=== PATIENT | male | born 1975 | race Caucasian/White ===

== ENCOUNTER 2018-12-26 06:32 | Inpatient (IN) | payer MEDICARE ==
[2018-12-26] MEDS ORDERED: BUPIV. HCL 0.25% (2.5MG/ML)/EPI. (1:200,000) PF 30 ML VIAL IJ ONE (08:48)
[2018-12-26] MEDS ORDERED: AMPICILLIN SODIUM 1 GM VIAL ONE (08:48)
[2018-12-26] MEDS ORDERED: MIDAZOLAM HCL 2 MG/2 ML VIAL ONE (08:48)
[2018-12-26] MEDS ORDERED: SCOPOLAMINE HYDROBROMIDE 1.5MG/72HR PATCH TD ONE (08:48)
[2018-12-26] MEDS ORDERED: FAMOTIDINE 20 MG/2 ML VIAL IV ONE (08:48)
[2018-12-26] MEDS ORDERED: PROPOFOL 200 MG/20 ML VIAL IV ONE (08:48)
[2018-12-26] MEDS ORDERED: ePHEDrine SULFATE 50 MG/1 ML IVP ONE (08:48)
[2018-12-26] MEDS ORDERED: LACTATED RINGERS 1,000 ML IV.SOLN IV ONE ×2 (08:48)
[2018-12-26] MEDS ORDERED: ROCURONIUM BROMIDE 10 MG/ML 5ML VIAL ONE (08:48)
[2018-12-26] MEDS ORDERED: PHENYLEPHRINE HCL 10 MG/1 ML ONE (08:48)
[2018-12-26] MEDS ORDERED: ONDANSETRON HCL/PF 4 MG/ 2ML VIAL ONE (08:48)
[2018-12-26] MEDS ORDERED: LIDOCAINE HCL 2% PF 100MG/5ML VIAL IJ ONE (08:48)
[2018-12-26] MEDS ORDERED: DEXAMETHASONE SODIUM PHOSPHATE 10 MG/ML VIAL ONE (08:48)
[2018-12-26] MEDS ORDERED: SUGAMMADEX SODIUM 500 MG/5 ML VIAL IV ONE (08:48)
[2018-12-26] MEDS ORDERED: SEVOFLURANE 250 ML LIQUID IH ONE (08:48)
[2018-12-26] MEDS ORDERED: LIDOCAINE HCL 1% PF 300MG/30ML VIAL ONE (08:48)
[2018-12-26] MEDS ORDERED: CLINDAMYCIN PHOSPHATE 900 MG/6 ML VIAL ONE (08:48)
[2018-12-26] MEDS ORDERED: ENOXAPARIN SODIUM 40 MG/0.4 ML DISP.SYRIN SQ ONE (08:48)
[2018-12-26] MEDS ORDERED: SODIUM CHLORIDE IRRIG SOLUTION 3,000 ML IRRIG.SOLN IR ONE (08:48)
[2018-12-26] MEDS ORDERED: fentaNYL CITRATE/PF 100 MCG/2 ML INJ. ONE (10:15)
[2018-12-26] MEDS ORDERED: 0.9 % SODIUM CHLORIDE 1,000 ML IV ONE (10:43)
[2018-12-26] MEDS ORDERED: HYDROcodone-ACETAMIN 7.5-325/15ML SOLN UD CUP PO PRN (10:51)
[2018-12-26] MEDS ORDERED: CYCLOBENZAPRINE HCL 10 MG TABLET PO PRN (10:55)
[2018-12-26 11:08] VITALS: BMI 64.1
--- NOTE | 2018-12-26 11:18 | History and Physical Report ---
History of Present Illnes - History of Present Illness Reason for Visit: S/P LSG History of Present Illness: Patient is a 43-year-old morbidly obese male with a BMI > 64 who has tried multiple diets and exercise programs with no success. He has always struggled with his weight. He states that his parents were overweight. He has tried many diet plans, diet pills, and walking and has not been able to keep it off. Patient and surgeon decided to proceed with gastric sleeve procedure. Procedure went well- patient will be admitted and monitored s/p surgical intervention. Patient has been on a liquid diet prior to surgery so he is a risk of dehydration s/p surgery. He will be admitted for IV hydration to help hydrate patient until he is able to tolerate a sufficient oral intake, will treat pain with IV medication until patient is able to tolerate oral meds, IV antiemetics to help reduce episodes of nausea and/or vomiting. Patient will be monitored closely using telemetry due to Sleep Apnea (will monitor closely- does not use CPAP), shortness of breath with exertion and severe obesity. Will monitor respiratory status due to respiratory risk. - Past Medical History Pulmonary: Pulmonary embolus (Hx of PE in 2002), Sleep Apnea (No CPAP) Gastrointestinal: GERD Psych: Depression Musculoskeletal: Chronic low back pain Endocrine: obesity (Morbid) - Past Surgical History Past Surgical History: Cholecystectomy, Other (Left ankle/Right knee/ CTR bilateral/Nasal septum repair/Femur with donald) - Past Family History Mother Family History: DM, Hyperlipidemia, Hypertension Father Family History: CAD, DM, Hyperlipidemia - Past Social History Smoke: No (uses chewing tobacco) Occupation: Disabled Alcohol: None Drugs: None Lives: With Family Domestic Violence: Negative - Health Maintenance Health Maintenance: Cholesterol Influenza Vaccine: No Pneumonia Vaccine: No Resuscitation Status: Resusciation Status Resuscitation Status Full Code Review of Systems - Review of Systems Constitutional: negative: Fever, Chills Eyes: negative: conjunctivae inflammation, eyelid inflammation ENT: negative: Throat Pain Respiratory: SOB with Excertion Cardiovascular: negative: Chest Pain, Light Headedness Gastrointestinal: Nausea, Vomiting (dry heaves), Abdominal Pain ("pt states he is very uncomfortable") Genitourinary: negative: Dysuria Musculoskeletal: Back Pain (chronic) Skin: Other (incision site x 5) Neurological: negative: Weakness, Confusion - Medications/Allergies Allergies/Adverse Reactions: Allergies Allergy/AdvReac Type Severity Reaction Status Date / Time Penicillins Allergy Verified 12/26/18 10:38 Sulfa (Sulfonamide Allergy Verified 12/26/18 10:38 Antibiotics) Home Medications: Home Medications Cyclobenzaprine HCl 10 mg PO TID PRN 12/26/18 Morphine Sulfate [Morphine Sulfate ER] 30 mg PO TID 12/26/18 Omeprazole 20 mg PO DAILY 12/26/18 Vilazodone HCl [Viibryd] 40 mg PO DAILY 12/26/18 Current Inpatient Medications: Current Inpatient Medications Hydrocodone Bitart/Acetaminophen (Hycet 7.5-325mg/15 Ml Ud Cup) 30 ml PO Q4 PRN PRN Reason: PAIN 5-7 Stop: 12/30/18 10:50 Cyclobenzaprine HCl (Flexeril) 10 mg PO TID PRN PRN Reason: Muscle Spasms Enoxaparin Sodium (Lovenox) 40 mg SQ DAILY COUNTS INCLUDE 234 BEDS AT THE [facility] Stop: 01/10/19 08:59 Famotidine (Pepcid) 20 mg IVP BID COUNTS INCLUDE 234 BEDS AT THE [facility] Stop: 12/30/18 20:59 Clindamycin HCl 600 mg/ Water 50 mls @ 50 mls/hr IV Q8H COUNTS INCLUDE 234 BEDS AT THE [facility] Stop: 12/27/18 01:59 Sodium Chloride (Normal Saline) 1,000 mls @ 150 mls/hr IV Q8H KATHLEEN Promethazine HCl 25 mg/ Sodium (Chloride) 51 mls @ 200 mls/hr IV Q6 PRN PRN Reason: Nausea / Vomiting Stop: 12/30/18 10:50 Ketorolac Tromethamine (Toradol) 30 mg IV Q6H PRN PRN Reason: For Mild Pain Stop: 12/30/18 10:50 Morphine Sulfate () 4 mg IVP Q2 PRN PRN Reason: PAIN 8-10 Stop: 12/30/18 10:50 Ondansetron HCl (Zofran) 4 mg IVP Q6H PRN PRN Reason: Nausea / Vomiting Stop: 12/30/18 10:50 Exam - Exam Vital Signs: Vital Signs (72 hours) 12/26/18 12/26/18 12/26/18 10:51 10:57 11:03 Temperature 96.5 F L 96.5 F L Pulse Rate 88 Pulse Rate [ 85 85 Left] Respiratory 18 18 Rate Blood Pressure 159/82 159/82 [Left Arm] O2 Sat by Pulse 96 96 96 Oximetry General: Alert, Oriented to Person, Oriented to Place, Oriented to Time, Cooperative, Moderate distress (patient appears very uncomfortable), Morbidly Obese HEENT: PERRLA, Other (dry mucous membranes) Neck: Normal Range of Motion Carotids: No bruit Lungs: Clear to auscultation, Normal air movement Cardiovascular: Regular rate, Normal S1, Normal S2 Peripheral Edema: None- obesity to legs Peripheral Pulses: palpable- difficult due to obesity Abdomen: Soft, Other (tenderness), Decreased Bowel Sounds Integumentary: Warm, Dry, Pale, Other (incision site x 5 dry and intact) Extremities: No tenderness/swelling Neurological: Normal speech, Strength Equal Bilat, Sensation intact Psych/Mental Status: Mental status NL, Mood NL, Appropriate Affect, Intact Judgment Assessment/Plan - Assessment/Plan (1) Status post gastric surgery Status: Acute Current Visit: Yes Plan: Plan to admit for IV hydration, IV pain meds, and IV antiemetics. Lovenox and SCDs to help prevent DVTs, IS and frequent ambulation will be implemented. Start ice chips and advance diet as tolerated once nausea and vomiting is controlled. (2) Morbid obesity due to excess calories Status: Acute Current Visit: Yes Plan: Will start with ice chips and advance to clear liquids once N/V controlled (3) Nausea and vomiting Status: Acute Current Visit: Yes Assessment: Patient experiencing nausea with dry heaves s/p surgery Plan: Patient is to receive IV antiemetics until N/V controlled- will administer IV fluids until patient can tolerate PO (4) GERD (gastroesophageal reflux disease) Status: Acute Current Visit: Yes Qualifiers: Esophagitis presence: without esophagitis Qualified Code(s): K21.9 - Gastro-esophageal reflux disease without esophagitis Plan: Will administer IV Pepcid 20mg BID (5) Back pain Status: Acute Current Visit: Yes Qualifiers: Back pain location: low back pain Chronicity: chronic Plan: Will hold patients home pain meds- he will be on pain meds here- we will continue with muscle relaxer once he is able to tolerate PO- may also use heating pad (6) Depression Status: Acute Current Visit: Yes Plan: Will hold medication until he is able to tolerate PO VTE Assessment - RISK FACTOR SCORE VTE RISK FACTOR SCORES: AGE 40-60 YEARS, OBESITY, MAJOR SURGERY/ANESTHESIA TIME > 1 HOUR - RISK VTE HIGH RISK: SCORE OF 3-4 (RISK PROXIMAL DVT 4-8%) PROPHYLAXIS NEEDED (Lovenox daily, SCDs while in bed, Incentive Spirometry, Frequent Ambulation)
[2018-12-26] MEDS: KETOROLAC TROMETHAMINE 30 MG/1ML VIAL IV PRN (11:37)
[2018-12-26] MEDS: 0.9 % SODIUM CHLORIDE 1,000 ML IV SCH (11:54)
[2018-12-26] MEDS: ONDANSETRON HCL/PF 4 MG/ 2ML VIAL IVP PRN (13:30)
[2018-12-26] MEDS: MORPHINE SULFATE 4 MG/ML VIAL IVP PRN ×2 (13:32→20:50)
[2018-12-26] MEDS ORDERED: MAG HYDROX/ALUMINUM HYD/SIMETH 30 ML UDC PO PRN (15:21)
[2018-12-26] MEDS: PROMETHAZINE HCL 25 MG in 0.9 % SODIUM CHLORIDE 50 ML IV PRN (16:00)
[2018-12-26] MEDS ORDERED: CLINDAMYCIN HCL 600 MG/50 ML PIGGYBACK IV ONE (17:23)
[2018-12-26] MEDS: CLINDAMYCIN HCL IV SCH (17:49)
[2018-12-26] MEDS: FAMOTIDINE 20 MG/2 ML VIAL IVP SCH (20:45)
[2018-12-27] MEDS: PROMETHAZINE HCL 25 MG in 0.9 % SODIUM CHLORIDE 50 ML IV PRN ×2 (00:11→05:31)
[2018-12-27] MEDS ORDERED: CLINDAMYCIN HCL 600 MG/50 ML PIGGYBACK IV ONE (01:13)
[2018-12-27] MEDS: 0.9 % SODIUM CHLORIDE 1,000 ML IV SCH ×6 (01:21→22:25)
[2018-12-27] MEDS: CLINDAMYCIN HCL IV SCH (01:24)
[2018-12-27 06:22] LABS: eGFR (Non-African) > 60
[2018-12-27 06:23] LABS: BASOPHILS % 0.4 % (0.0-1.5); NEUTROPHILS # 8.8 # k/uL (1.4-7.7)
[2018-12-27] MEDS: MORPHINE SULFATE 4 MG/ML VIAL IVP PRN (06:23)
[2018-12-27] MEDS ORDERED: ENOXAPARIN SODIUM 40 MG/0.4 ML DISP.SYRIN SQ SCH (09:00)
[2018-12-27] MEDS: FAMOTIDINE 20 MG/2 ML VIAL IVP SCH ×2 (10:05→20:10)
[2018-12-27] MEDS: ONDANSETRON HCL/PF 4 MG/ 2ML VIAL IVP PRN (10:08)
[2018-12-27] MEDS: KETOROLAC TROMETHAMINE 30 MG/1ML VIAL IV PRN ×2 (10:11→20:10)
--- NOTE | 2018-12-27 17:20 | Inpatient Progress Note ---
Subjective - Required Recertification Statement I anticipate X number of days because-include discharge plan: 1 - Review of Systems Events since last encounter: Patient states that he had a decent night. He had some nausea- minimal vomiting- he was encouraged to sip his drinks and wait in between drinks (he later stated that it really helped)- he states that his pain is tolerable and pain medications are working. He has been up walking in the white, wearing SCDs while in bed, and using Incentive Spirometry- incision sites are dry and intact. General: Denies: Chills HEENT: Denies: Dysphasia Pulmonary: Denies: Dyspnea Cardiovascular: Denies: Chest Pain, Light Headedness Gastrointestinal: Nausea, Vomiting, Abdominal Pain Genitourinary: Denies: Dysuria Musculoskeletal: Denies: Back Pain Neurological: Denies: Weakness Objective - Exam Vitals and I&O: Vital Signs Temp 98.6 F 12/27/18 14:00 Pulse 105 H 12/27/18 14:00 Resp 18 12/27/18 14:00 BP 147/78 12/27/18 14:00 Pulse Ox 96 12/27/18 14:00 Intake & Output 12/26/18 12/27/18 12/27/18 23:59 11:59 23:59 Intake Total 2110 1560 240 Output Total 700 1325 Balance 1410 235 240 Intake: IV 1810 1500 left hand 600 right hand 1210 1500 Oral 300 60 240 Output: Urine 700 1325 Other: Voiding Method Toilet Toilet Toilet # Voids 1 1 1 # Bowel Movements 0 0 0 General: Alert, Oriented to Person, Oriented to Place, Oriented to Time, Cooperative, Mild distress, Morbidly Obese HEENT: PERRLA, Mouth Mucous membr. moist/[place], Nose Mucous membr. moist/[place] Neck: Supple, +2 carotid pulse wo bruit Lungs: Clear to auscultation, Normal air movement, Speaks full Sentences Cardiovascular: Regular rate, Normal S1, Normal S2 Abdomen: Normal bowel sounds, Soft Extremities: Normal pulses, No tenderness/swelling Skin: [place], Warm, Dry, Other (incisions are without redness/erythema) Neurological: Normal gait, Normal speech, Strength Equal Bilat, Sensation intact - Results Results: Laboratory Results WBC 11.00 K/ul (4.00-12.00) 12/27/18 05:10 RBC 5.00 M/ul (3.90-5.20) 12/27/18 05:10 Hgb 12.3 g/dL (12.0-18.0) 12/27/18 05:10 Hct 38.0 % (37.0-53.0) 12/27/18 05:10 MCV 76.0 fl (80.0-100.0) L 12/27/18 05:10 MCH 24.7 pg (28.0-34.0) L 12/27/18 05:10 MCHC 32.5 g/dL (30.0-36.0) 12/27/18 05:10 RDW 16.2 % (11.3-14.3) H 12/27/18 05:10 Plt Count 203 K/mm3 (130-400) 12/27/18 05:10 Neut % (Auto) 80.2 % (39.0-79.0) H 12/27/18 05:10 Lymph % (Auto) 13.6 % (16.0-50.0) L 12/27/18 05:10 Divide % (Auto) 4.7 % (0.0-11.0) 12/27/18 05:10 Eos % (Auto) 1.1 % (0.0-6.8) 12/27/18 05:10 Baso % (Auto) 0.4 % (0.0-1.5) 12/27/18 05:10 Neut # (Auto) 8.8 # k/uL (1.4-7.7) H 12/27/18 05:10 Lymph # (Auto) 1.5 # k/uL (0.6-4.0) 12/27/18 05:10 Divide # (Auto) 0.5 # k/uL (0.0-0.9) 12/27/18 05:10 Eos # (Auto) 0.1 # k/uL (0.0-0.6) 12/27/18 05:10 Baso # (Auto) 0.0 # k/uL (0.0-0.5) 12/27/18 05:10 Sodium 135 mmol/L (137-145) L 12/27/18 05:10 Potassium 4.6 mmol/L (3.5-5.1) 12/27/18 05:10 Chloride 99 mmol/L (98-107) 12/27/18 05:10 Carbon Dioxide 26 mmol/L (22-30) 12/27/18 05:10 BUN 7 mg/dL (9-20) L 12/27/18 05:10 Creatinine 0.83 mg/dL (0.66-1.25) 12/27/18 05:10 Estimated Creat Clear 348 12/27/18 05:10 Est GFR ( Amer) > 60 (60-) 12/27/18 05:10 Est GFR (Non-Af Amer) > 60 (60-) 12/27/18 05:10 Glucose 120 mg/dL (74-106) H 12/27/18 05:10 Calcium 8.9 mg/dL (8.4-10.2) 12/27/18 05:10 Total Bilirubin 0.8 mg/dL (0.2-1.3) 12/27/18 05:10 AST 73 U/L (15-46) H 12/27/18 05:10 ALT 109 U/L (0-50) H 12/27/18 05:10 Alkaline Phosphatase 103 U/L (38-126) 12/27/18 05:10 Total Protein 8.6 g/dL (6.3-8.2) H 12/27/18 05:10 Albumin 4.4 g/dL (3.5-5.0) 12/27/18 05:10 Assessment/Plan - Assessment/Plan (1) Status post gastric surgery Status: Acute Current Visit: Yes Assessment: Incision without redness or drainage, positive bowel sounds, minimal discomfort, belching and flatus, no extremity pain or edema, had some nausea with dry heaves Plan: Will continue to have patient ambulate frequently in the white, wear SCDs while in bed, frequent use of incentive spirometer, continue IVF until patient can take in sufficient oral intake- pt is tolerating po meds (2) Morbid obesity due to excess calories Status: Acute Current Visit: Yes Assessment: Continuing with bariatric diet- patient had some nausea and dry heaves Plan: Will continue with clear liquid diet (3) Nausea and vomiting Status: Acute Current Visit: Yes Assessment: Patient had some dry heaves- improved when he started sipping instead of gulping Plan: IV antiemetic ordered as needed (4) GERD (gastroesophageal reflux disease) Status: Acute Current Visit: Yes Qualifiers: Esophagitis presence: without esophagitis Qualified Code(s): K21.9 - Gastro-esophageal reflux disease without esophagitis Assessment: Stable Plan: Will continue with Pepcid IV BID (5) Back pain Status: Acute Current Visit: Yes Qualifiers: Back pain location: low back pain Chronicity: chronic Assessment: Stable Plan: May use K-Pad as needed (6) Depression Status: Acute Current Visit: Yes Assessment: stable
[2018-12-28] MEDS: KETOROLAC TROMETHAMINE 30 MG/1ML VIAL IV PRN (04:46)
--- NOTE | 2018-12-28 06:58 | Discharge Summary ---
Discharge Summary - Discharge [facility] Admission Date: 12/26/18 Discharge Date: 12/28/18 Discharge To: Home History of Present Illness: Patient is a 43-year-old morbidly obese male with a BMI > 64 who has tried multiple diets and exercise programs with no success. He has always struggled with his weight. He states that his parents were overweight. He has tried many diet plans, diet pills, and walking and has not been able to keep it off. Patie nt and surgeon decided to proceed with gastric sleeve procedure. Procedure went well- patient was admitted and monitored s/p surgical intervention. Patient had been on a liquid diet prior to surgery so he was a risk of dehydration s/p surgery. He was admitted for IV hydration to help hydrate patient until he was able to tolerate a sufficient oral intake, he was treated with IV pain medication until he was able to tolerate oral meds, IV antiemetics to help reduce episodes of nausea and/or vomiting. Patient was monitored closely using telemetry due to Sleep Apnea, shortness of breath with exertion and severe obesity. Condition at Discharge: Stable Home Medications: Ambulatory Orders Medication Instructions Recorded Cyclobenzaprine HCl 10 mg PO TID PRN 12/26/18 Morphine Sulfate [Morphine Sulfate 30 mg PO TID 12/26/18 ER] Omeprazole 20 mg PO DAILY 12/26/18 Vilazodone HCl [Viibryd] 40 mg PO DAILY 12/26/18 Consultations this Visit: None Procedures this Visit: Other (S/P LSG) Allergies/Adverse Reactions: Allergies Allergy/AdvReac Type Severity Reaction Status Date / Time Penicillins Allergy Verified 12/26/18 10:38 Sulfa (Sulfonamide Allergy Verified 12/26/18 10:38 Antibiotics) Patient Problems: Current Active Problems Problem Status Onset Back pain Acute Depression Acute GERD (gastroesophageal reflux disease) Acute Morbid obesity due to excess calories Acute Nausea and vomiting Acute Status post gastric surgery Acute Discharge Summary: Patient is a 43-year-old male that underwent the gastric sleeve procedure and has done well. he has been very cooperative with his care by ambulating frequently, using his incentive spirometer, and wearing his SCDs while in bed. He has been compliant with his diet during hospitalization. He is having minimal discomfort at this time and minimal nausea- he has is passing gas and belching. He is aware of discharge instructions and what he can and cannot do post surgical- he is aware of the strict diet he must follow to decrease discomfort and have success after procedure. He has family support and family will be taking her home- medications written by surgeon given to patient. He feels ready to go home. Hospital Course: Patient received IV pain medications, antiemetics, and IVF and was transitioned to oral. He has been up ambulating and using incentive spirom eter. - Final Diagnosis (1) Status post gastric surgery Problems: Incision without redness or drainage, positive bowel sounds, minimal discomfort, belching and flatus, no extremity pain or edema Right or Left: Right (2) Morbid obesity due to excess calories Problems: Continue with bariatric sleeve diet- clear liquids today and start full liquids tomorrow Right or Left: Right (3) Nausea and vomiting Problems: Stable- minimal nausea Right or Left: Right (4) GERD (gastroesophageal reflux disease) Problems: Stable- pt will continue on omeprazole Right or Left: Right (5) Back pain Problems: Stable Right or Left: Right (6) Depression Problems: Stable Right or Left: Right
[2018-12-28 09:31] VITALS: BP 166/74
--- NOTE | 2018-12-30 13:36 | Operative Note ---
PREOPERATIVE DIAGNOSIS: 1. Morbid obesity. 2. Sleep apnea. 3. Arthritis. POSTOPERATIVE DIAGNOSIS: 1. Morbid obesity. 2. Sleep apnea. 3. Arthritis. PROCEDURES PERFORMED: 1. Laparoscopic vertical sleeve gastrectomy. 2. Upper gastrointestinal endoscopy. SURGEON: Saleem Treadwell M.D. INDICATIONS FOR PROCEDURE: Mr. Andrea Bueno is a 43-year-old male who presented with features of morbid obesity. He was noted to have a weight of 471 pounds with a BMI of 62.1 with the above-listed comorbidities. The patient was advised laparoscopic vertical sleeve gastrectomy. The patient showed understanding and agreed to proceed. DESCRIPTION OF PROCEDURE: After explaining to the patient in detail and informed consent was obtained, the patient was identified in the preoperative holding area. The patient was transferred to the operating room and was placed in supine position. Sequential compressive devices were placed for DVT prophylaxis. Preoperative antibiotics were given. After induction of anesthesia, the abdomen was prepped and draped in a sterile fashion. Through a left upper quadrant 1-cm incision, and using Optiview technique, the peritoneal cavity was entered and pneumoperitoneum was created. Thereafter, under direct vision, another 5-mm trocar was placed in the left midabdomen and another 15-mm trocar was placed in the right midabdomen. Through a 1-cm incision in the right subcostal region, another 5-mm trocar was placed. Through a 1-cm incision in the epigastrium, a Ze retractor was introduced and the left lobe of the liver was retracted. On initial inspection, the patient was noted to have no evidence of hiatal hernia. I took down the gastroepiploic vessels using a LigaSure. This was continued superiorly. The short gastric vessels were taken down. The gastrophrenic ligament was divided and the Angle of His was mobilized. The posterior attachments of the stomach on the pancreas were released. Distally, the gastroepiploic vessels were taken down up to about 4 cm proximal to the pylorus. At this point, a #38 [place] Hurst Bougie was introduced into the stomach and was placed along the lesser curve. The stomach was then divided in a vertical fashion with multiple Endo [employer]AN[employer] Black Load Staplers. The first firing was directed outwards towards the greater curvature. Subsequent firings were directed towards the Angle of His to create a loose sleeve around the #38 [place] bougie. The bougie was then removed and an upper GI endoscopy was performed at this point. The scope was introduced into the esophagus and was gradually advanced into the stomach. The GE junction appeared normal. The sleeve size appeared normal. No evidence of any active bleeding was noted. The stomach was insufflated with air and irrigation of fluid along the staple line revealed no evidence of air leak. The stomach was then suctioned out and the scope was removed. Absolute hemostasis was ensured. Thorough saline irrigation was given. The Ze retractor was removed. Approximately 10 mL of a lidocaine- Marcaine mix was instilled under the left hemidiaphragm. The sleeve gastrectomy specimen was removed. The abdomen was then deflated. The incisions were closed with 4-0 Monocryl. Dermabond was applied. Approximately 10 mL of a lidocaine- Marcaine mix was injected into all the incisions. The patient was awakened from anesthesia and was transferred to the recovery room in stable condition. ESTIMATED BLOOD LOSS: Approximately 10 mL. CONDITION OF THE PATIENT: Stable. FLUIDS GIVEN: Per Anesthesia note. SPECIMEN(S) SENT: Sleeve gastrectomy specimen. COMPLICATIONS: None. ANESTHESIA: General. Saleem Treadwell M.D. AMBER/leilani (Please copy [facility] provider when applicable) Job #[id number]
== END 2018-12-28 09:32 | disposition home or self-care (01) | DRG 621 ==
LOC: OPSURG 06:32 → SOUTH 10:30
PROVIDERS: ADMIT Nurse Practitioner Family; ATTEND Nurse Practitioner Family
PROC: 0DB64Z3 Excision of Stomach, Percutaneous Endoscopic Approach, Vertical (ICD-10-PCS; principal; 2018-12-26)
DX: E66.01 Morbid (severe) obesity due to excess calories (principal); G47.30 Sleep apnea, unspecified; F32.9 Major depressive disorder, single episode, unspecified; K21.9 Gastro-esophageal reflux disease without esophagitis; G89.29 Other chronic pain; M19.90 Unspecified osteoarthritis, unspecified site; M54.5 Low back pain; F17.220 Nicotine dependence, chewing tobacco, uncomplicated; Z68.44 Body mass index [BMI] 60.0-69.9, adult; Z86.711 Personal history of pulmonary embolism; Z90.49 Acquired absence of other specified parts of digestive tract; Z83.3 Family history of diabetes mellitus; Z82.49 Family history of ischemic heart disease and other diseases of the circulatory system; Z88.0 Allergy status to penicillin; Z88.2 Allergy status to sulfonamides; Z79.899 Other long term (current) drug therapy
CPT/HCPCS: 80053; 85025; 99221; J0290; J1650; J1885; J2001; J2250; J2270; J2370; J2405; J2550; J2704; J3010; A9270-GY; J7030; J7120; S1016